=== PATIENT | male | born 1940 | race Caucasian/White ===

== ENCOUNTER 2017-07-22 08:54 | Emergency (ER) | payer MEDICARE ==
[2017-07-22] MEDS ORDERED: Sodium Chloride 0.9% 1,000 ML ONE (09:23)
[2017-07-22 09:33] LABS: #Eosinphils 0.1 thou/uL (0.0-0.7); #Monocytes 0.3 thou/uL (0.11-0.59); #Neutrophils 5.8 thou/uL (1.40-6.50); %Basophils 0.5 % (0.0-1.0); %Eosinophils 0.8 % (0.0-10.0); %Lymphocytes 14.5 % (21.0-51.0); %Monocytes 3.8 % (0.0-10.0); %Neutrophils 80.5 % (42.0-75.0); Mean Corpuscular HGB CONC 33.8 g/dL (32.0-36.0); Mean Corpuscular Hemoglobin 33.1 pg (27.0-31.0); Mean Corpuscular Volume 97.9 fl (80.0-94.0); Mean Platelet Volume 11.5 fL (7.4-10.4); Platelet Count 128 thou/uL (130-400); RBC Distribution Width 11.4 % (11.5-14.5); Red Blood Cell (RBC) Count 3.93 mill/uL (4.70-6.10); White Blood Cell (WBC) Count 7.1 thou/uL (4.8-10.8)
[2017-07-22 09:48] LABS: ALT (SGPT) 18 U/L (8-55); AST (SGOT) 23 U/L (5-34); Alkaline Phosphatase 45 U/L (40-150); Anion Gap 13 mmol/L (10-20); BUN (Urea Nitrogen) 24 mg/dL (8.4-25.7); Bilirubin, Total 0.9 mg/dL (0.2-1.2); Calc. Creatinine Clearance 0 mL/min (70-130); Carbon Dioxide 23 mmol/L (23-31); Chloride 109 mmol/L (98-107); Estimated GFR-MDRD 71; Glucose 118 mg/dL (83-110); Potassium 3.7 mmol/L (3.5-5.1); Sodium 141 mmol/L (136-145)
[2017-07-22 09:58] LABS: CKMB 1.9 ng/mL (0-6.6); Troponin I Less than 0.010 ng/mL (< 0.028)
--- NOTE | 2017-07-22 10:26 | CT ---
CT BRAIN WITHOUT CONTRAST: History: Light headedness. Vertigo. Comparison: None. FINDINGS: No acute territory infarct or hemorrhage. No midline shift or mass effect. Ventricular size and extra axial CSF spaces are normal. Paranasal sinuses and mastoids are clear. Calvarium is intact. IMPRESSION: 1. No acute intracranial abnormality. 2. Extensive fluid within the right sphenoid sinus. 3. Small focus of what appears to be gas along the anterior cortex of the right frontal sinus. Recomm end correlation for laceration. POS: [facility]
--- NOTE | 2017-07-22 10:27 | RAD ---
CHEST ONE VIEW: History: Light headedness. Comparison: None. FINDINGS: Heart size upper limits of normal. There is mild pulmonary venous congestion. Mild tortuosity of the aorta. No focal airspace consolidation, pneumothorax, or effusion. IMPRESSION: Mild cardiomegaly and pulmonary venous congestion. POS: [facility]
== END 2017-07-22 11:54 | disposition short-term general hospital (02) ==
LOC: NAV ERS 08:54
DX: R42 Dizziness and giddiness (principal); I10 Essential (primary) hypertension; E78.5 Hyperlipidemia, unspecified; Z87.891 Personal history of nicotine dependence; Z79.02 Long term (current) use of antithrombotics/antiplatelets; Z79.82 Long term (current) use of aspirin; Z79.899 Other long term (current) drug therapy
CPT/HCPCS: 36415; 70450; 71045; 80053; 82553; 83880; 84484; 85025; 93005; J7050